=== PATIENT | male | born 1960 | race Caucasian/White ===

== ENCOUNTER 2021-12-29 11:59 | Emergency (ER) | payer OTHER, SELFPAY ==
[2021-12-29 12:01] VITALS: BP 137/85; PULSE 63; RESP 14; TEMP 37.1; O2SAT 98; BMI 25.8
[2021-12-29 12:53] LABS: Ictotest Urine Negative (Negative)
[2021-12-29 12:59] LABS: Bacteria Urine None Seen; Culture Indicated Urine Cult Not Indicated; Mucus Urine 1+ (Negative); RBC Urine 5-10/HPF (0-5/HPF); Squamous Epithelial Cell Urine 1-5 /HPF (0-5/HPF); WBC Urine 1-5/HPF (0-5/HPF)
--- NOTE | 2021-12-29 13:04 | ED_ITS ---
HPI - Male Genitourinary General Chief complaint: Urogenital-Male Stated complaint: KIDNEY STONE Time Seen by Provider: 12/29/21 12:06 Source: patient Mode of arrival: Ambulatory Related Data Allergies Allergy/AdvReac Type Severity Reaction Status Date / Time No Known Drug Allergies Allergy Verified 12/29/21 12:01 Patient History Social History Smoking Status: Unknown if ever smoked Smoking Status: Unknown if ever smoked alcohol intake frequency: holidays/special occasions only Substance Use Type: does not use Exam Initial Vital Signs Initial Vital Signs: Vital Signs Temperature 98.7 F 12/29/21 12:01 Pulse Rate 63 12/29/21 12:01 Respiratory Rate 14 12/29/21 12:01 Blood Pressure 137/85 12/29/21 12:01 Pulse Oximetry 98 12/29/21 12:01 Oxygen Delivery Method 12/29/21 12:01 Course Orders Ordered: ED Orders 12/29/21 12:08 Ictotest Urine Stat Urine Microscopic Stat 12/29/21 12:29 CT kidney ureter bladder (KUB) Stat 12/29/21 13:39 CBC Auto Diff [Complete Blood Count AUTO DIFF] Stat CMP [Comprehensive Metabolic Panel] Stat Vital Signs Vital signs: Vital Signs - 8 hr 12/29/21 12:01 Temperature 98.7 F Pulse Rate 63 Respiratory Rate 14 Blood Pressure 137/85 Pulse Oximetry 98 Oxygen Delivery Method Room Air MDM - Male Genitourinary Lab Data Result diagrams: 12/29/21 13:39 12/29/21 13:39 Labs: Lab Results 12/29/21 12/29/21 Range/Units 12:08 12:08 Ur Bilirubin Confirm Negative (Negative) Urine RBC 5-10/hpf H (0-5/HPF) Urine WBC 1-5/hpf (0-5/HPF) Ur Squamous Epith Cells 1-5 /hpf (0-5/HPF) Urine Bacteria None seen (None) Urine Mucus 1+ H (Negative) Ur Culture Indicated? Cult not indicated Urine Dip Bedside Urine Glucose Negative Bedside Urine Bilirubin ++ 2 Bedside Urine Ketone +/- 5 Urine Specific [place] 1.030 Bedside Urine Occult Blood +/- Bedside Urine pH 6.0 Bedside Urine Protein + 30 Bedside Urine Urobilinogen - Negative Bedside Urine Nitrite - Negative Bedside Urine Leukocytes - Negative Esterase
[2021-12-29 13:52] LABS: Add Manual Diff / Slide Review NO; Basophils Absolute Auto 100 /uL (0-100); Basophils Percent Auto 0.4 % (0-2); Eosinophils Absolute Auto 0 /uL (0-450); Hemoglobin 12.6 g/dL (13.5-17.5); Lymphocytes Absolute Auto 800 /uL (1100-4500); Lymphocytes Percent Auto 6.2 % (25-40); Mean Corpuscular HGB Conc 33.1 % (30-36); Mean Corpuscular Hemoglobin 25.1 PG (26-34); Mean Corpuscular Volume 75.7 fL (80-100); Monocytes Absolute Auto 700 /uL (0-900); Neutrophils Absolute Auto 12000 /uL (1500-7000); Neutrophils Percent Auto 88.4 % (50-75); Platelet Count 251 X10^3/uL (150-400); Red Blood Cell Count 5.02 X10^6/uL (4.5-5.9); Red Cell Distribution Width 18.7 % (11.6-14.8); White Blood Cell Count 13.6 X10^3/uL (4.5-11.0)
--- NOTE | 2021-12-29 14:00 | ED_ITS ---
HPI - General Adult General Chief complaint: Urogenital-Male Stated complaint: KIDNEY STONE Time Seen by Provider: 12/29/21 12:06 Source: patient Mode of arrival: Ambulatory History of Present Illness HPI narrative: 61-year-old gentleman with no current medications or medical issues but reports of kidney stones on the right side 10-12 years ago presents with left-sided flank and lower quadrant pain that he believes is recurrent kidney stone. Initial pain started last night at 10:00 p.m. was significant enough to cause significant nausea but no actual vomiting. He took 400 mg of ibuprofen and actually did well until he was awakened from sleep at 3:00 a.m. again with severe left flank pain. It is continued to progress with colicky bouts of pain throughout the day. He describes no gross hematuria. He did have vomiting today. He had a regular bowel movement last night. He describes no recent fevers, cough, palpitations, chest pain, headaches, lower extremity edema. Related Data Previous Rx's Medication Instructions Recorded amoxicillin-potassium clavulanate 1 tab PO BID #20 tabs 12/29/21 1,000 mg-62.5 mg tablet,ext.rel 12hr oxycodone-acetaminophen 5 mg-325 1 tab PO Q6H PRN pain #10 tabs 12/29/21 mg tablet Allergies Allergy/AdvReac Type Severity Reaction Status Date / Time No Known Drug Allergies Allergy Verified 12/29/21 12:01 Review of Systems Review of Systems Narrative: Remainder of complete review of systems is otherwise unremarkable except for that included in the HPI. Patient History Medical History (Updated 12/29/21 @ 16:42 by Morenita Yates MD) Kidney stones Social History Smoking Status: Unknown if ever smoked Smoking Status: Unknown if ever smoked alcohol intake frequency: holidays/special occasions only Substance Use Type: does not use Exam Initial Vital Signs Initial Vital Signs: Vital Signs Temperature 98.7 F 12/29/21 12:01 Pulse Rate 63 12/29/21 12:01 Respiratory Rate 14 12/29/21 12:01 Blood Pressure 137/85 12/29/21 12:01 Pulse Oximetry 98 12/29/21 12:01 Oxygen Delivery Method 12/29/21 12:01 General: Healthy appearing, in no acute distress. Able to give a complete and coherent history. Well-nourished well-developed HEENT: Moist mucous membranes, normal sclera with reactive pupils, Neck: supple Respiratory: Lungs are clear to auscultation, no wheezing no rales no rhonchi. Full and symmetrical air movement Cardiac: Regular rate and rhythm no murmurs no bruits Abdomen: Soft, nontender, good bowel tones, right flank palpation causes some mild left lower quadrant pain. Mild left flank pain and left lower quadrant pain without rebound or guarding. Skin: Warm and dry, no rashes Neurologic: Grossly neurologically intact with no obvious asymmetries or abnormalities Extremities: No trauma, well perfused Psych: Cooperative, appropriate insight and affect Course Orders Ordered: ED Orders 12/29/21 12:08 Ictotest Urine Stat Urine Microscopic Stat 12/29/21 13:39 CBC Auto Diff [Complete Blood Count AUTO DIFF] Stat CMP [Comprehensive Metabolic Panel] Stat 12/29/21 14:04 US renal complete Stat Amoxicillin/Clavulanate Potassium (Amoxicillin/Clav 875/125 Mg) 1 tab PO NOW ON E Stop: 12/29/21 16:38 Oxycodone/Acetaminophen (Oxycodone/Acetaminophen 5/325 Tablet) 1 tab PO NOW ONE Stop: 12/29/21 16:38 Discontinued Medications Ketorolac Tromethamine (Ketorolac 30 Mg/Ml Vial) 15 mg IV NOW ONE Stop: 12/29/21 14:05 Last Admin: 12/29/21 14:23 Dose: 15 mg Documented By: NR Ondansetron HCl (Ondansetron 4 Mg/2 Ml Inj) 4 mg IV NOW ONE Stop: 12/29/21 14:05 Last Admin: 12/29/21 14:23 Dose: 4 mg Documented By: NR Vital Signs Vital signs: Vital Signs - 8 hr 12/29/21 12:01 Temperature 98.7 F Pulse Rate 63 Respiratory Rate 14 Blood Pressure 137/85 Pulse Oximetry 98 Oxygen Delivery Method Room Air Medical Decision Making Lab Data Result diagrams: 12/29/21 13:39 12/29/21 13:39 Labs: Lab Results 12/29/21 12/29/21 12/29/21 Range/Units 12:08 12:08 13:39 WBC 13.6 H (4.5-11.0) X10^3/uL RBC 5.02 (4.5-5.9) X10^6/uL Hgb 12.6 L (13.5-17.5) g/dL Hct 38.0 L (41-53) % MCV 75.7 L (80-100) fL MCH 25.1 L (26-34) PG MCHC 33.1 (30-36) % RDW 18.7 H (11.6-14.8) % Plt Count 251 (150-400) X10^3/uL Neut % (Auto) 88.4 H (50-75) % Lymph % (Auto) 6.2 L (25-40) % [place] % (Auto) 5.0 (3-14) % Eos % (Auto) 0.0 L (2-4) % Baso % (Auto) 0.4 (0-2) % Neut # (Auto) 99018 H (7571-7610) /uL Lymph # (Auto) 800 L (7065-5053) /uL [place] # (Auto) 700 (0-900) /uL Eos # (Auto) 0 (0-450) /uL Baso # (Auto) 100 (0-100) /uL Sodium (137-145) mmol/L Potassium (3.4-5.1) mmol/L Chloride (98-107) mmol/L Carbon Dioxide (22-32) mmol/L BUN (9-20) mg/dL Creatinine (0.66-1.25) mg/dL Estimated GFR (>60) mL/min BUN/Creatinine Ratio (6-22) Glucose (80-110) mg/dL Calcium (8.4-10.2) mg/dL Total Bilirubin (0.2-1.3) mg/dL AST (17-59) IU/L ALT (<50) IU/L Alkaline Phosphatase (38-126) U/L Total Protein (6.3-8.2) g/dL Albumin (3.5-5.0) g/dL Globulin (1.7-4.1) g/dL Albumin/Globulin Ratio (1.0-2.8) Ur Bilirubin Confirm Negative (Negative) Urine RBC 5-10/hpf H (0-5/HPF) Urine WBC 1-5/hpf (0-5/HPF) Ur Squamous Epith Cells 1-5 /hpf (0-5/HPF) Urine Bacteria None seen (None) Urine Mucus 1+ H (Negative) Ur Culture Indicated? Cult not indicated 12/29/21 Range/Units 13:39 WBC (4.5-11.0) X10^3/uL RBC (4.5-5.9) X10^6/uL Hgb (13.5-17.5) g/dL Hct (41-53) % MCV (80-100) fL MCH (26-34) PG MCHC (30-36) % RDW (11.6-14.8) % Plt Count (150-400) X10^3/uL Neut % (Auto) (50-75) % Lymph % (Auto) (25-40) % [place] % (Auto) (3-14) % Eos % (Auto) (2-4) % Baso % (Auto) (0-2) % Neut # (Auto) (1884-4043) /uL Lymph # (Auto) (6803-8600) /uL [place] # (Auto) (0-900) /uL Eos # (Auto) (0-450) /uL Baso # (Auto) (0-100) /uL Sodium 141 (137-145) mmol/L Potassium 4.5 (3.4-5.1) mmol/L Chloride 108 H (98-107) mmol/L Carbon Dioxide 25 (22-32) mmol/L BUN 19 (9-20) mg/dL Creatinine 1.41 H (0.66-1.25) mg/dL Estimated GFR 57 L (>60) mL/min BUN/Creatinine Ratio 13.5 (6-22) Glucose 109 (80-110) mg/dL Calcium 9.3 (8.4-10.2) mg/dL Total Bilirubin 0.5 (0.2-1.3) mg/dL AST 24 (17-59) IU/L ALT 19 (<50) IU/L Alkaline Phosphatase 86 (38-126) U/L Total Protein 7.8 (6.3-8.2) g/dL Albumin 4.5 (3.5-5.0) g/dL Globulin 3.3 (1.7-4.1) g/dL Albumin/Globulin Ratio 1.4 (1.0-2.8) Ur Bilirubin Confirm (Negative) Urine RBC (0-5/HPF) Urine WBC (0-5/HPF) Ur Squamous Epith Cells (0-5/HPF) Urine Bacteria (None) Urine Mucus (Negative) Ur Culture Indicated? Urine Dip Bedside Urine Glucose Negative Bedside Urine Bilirubin ++ 2 Bedside Urine Ketone +/- 5 Urine Specific [place] 1.030 Bedside Urine Occult Blood +/- Bedside Urine pH 6.0 Bedside Urine Protein + 30 Bedside Urine Urobilinogen - Negative Bedside Urine Nitrite - Negative Bedside Urine Leukocytes - Negative Esterase Point of care testing: Urine Dip Bedside Urine Glucose Negative Bedside Urine Bilirubin ++ 2 Bedside Urine Ketone +/- 5 Urine Specific [place] 1.030 Bedside Urine Occult Blood +/- Bedside Urine pH 6.0 Bedside Urine Protein + 30 Bedside Urine Urobilinogen - Negative Bedside Urine Nitrite - Negative Bedside Urine Leukocytes - Negative Esterase Imaging Data US - abdomen: Radiologist's Impression: FINDINGS:? ? Kidneys:? Kidneys are normal in size.? Right kidney measures quesada cm long; left kidney measures 10.9 cm long.? Right renal cortical thickness is 1.5 cm; left renal cortical thickness is 1.7 cm.? Renal cortical echotexture is normal.? No nephrolithiasis.? No suspicious solid mass lesions.? Mild prominence of the left renal pelvis is seen without calyceal dilation.t ? Bladder:? Bladder was non distended at the time of the exam, which compromises evaluation.? Patient did not attempt to void. ? Miscellaneous:? No free pelvic fluid.? Prostate measures 3.8 x 3.5 x 3.8 cm. ? IMPRESSION:? 1. Mild prominence of the renal pelvis without calyceal dilation may represent very mild or early hydronephrosis versus normal-variant extrarenal pelvis. 2. No nephrolithiasis.? ? ? Dictated by: Faizan Lombardi M.D. on 12/29/2021 at 16:23? ?? [facility] Narrative Medical decision making narrative: 61-year-old gentleman with left flank left lower quadrant tenderness since 10:30 p.m. last night. Leukocytosis with left shift tender on palpation no red blood cells in his urine and I suspect that this is diverticulitis rather than a kidney stone. Patient disagrees and declines CT scan at this time due to radiation exposure, states he would consider MRI.. Will proceed with ultrasound and review all findings after images returned. 430pm patient is re-examined. Some minor left flank tenderness is again increasing, abdomen 1 remains soft with some tenderness in the left lower quadrant. The renal ultrasound does not suggest acute nephrolithiasis on the left side. The lack of blood in the urine and the elevated white blood cell count along with physical exam still suggest developing diverticulitis. All of these findings are reviewed with the patient. At this point we are going to opt to treat with 10 days of Augmentin for diverticulitis along with pain medication to treat the left lower quadrant/left flank pain. If symptoms worsen, change or not improving within the 1st 3 doses of Augmentin then I suggested that he return to the emergency room for further evaluation. He expresses understanding and is comfortable with home discharge Discharge Plan Departure Patient Disposition: Home Clinical Impression: Diverticulitis Instructions: DI for Diverticulitis Activity Restrictions/Additional Instructions: Thank you for coming in today Based on your lab work and her clinical exam I am suspicious that your developing diverticulitis. For this I am going to treat you with 10 days of Augmentin, and antibiotic. The ultrasound does not suggest kidney stones and there is no evidence of urinar y tract or kidney infection. I am going to give you a small prescription for Percocet to use for pain control if needed. This can be helpful if this does turntable engineer to be a kidney stone or that is diverticulitis. Percocet is a narcotic and will cause constipation. Please take a stool softener on each day that you choose to use narcotic medication to avoid constipation. If you find that you are getting worse or develop any new symptoms, please feel free to return to the emergency department for further evaluation. Prescriptions: New amoxicillin-pot clavulanate 1,000-62.5 mg tablet extended release 12 hr 1 tab PO BID Qty: 20 0RF oxycodone-acetaminophen 5-325 mg tablet 1 tab PO Q6H PRN (Reason: pain) Qty: 10 0RF
[2021-12-29 14:03] LABS: Alanine Aminotransferase 19 IU/L (<50); Albumin 4.5 g/dL (3.5-5.0); Albumin Globulin Ratio 1.4 (1.0-2.8); Alkaline Phosphatase 86 U/L (38-126); Aspartate Aminotransferase 24 IU/L (17-59); BUN Creatinine Ratio 13.5 (6-22); Bilirubin Total 0.5 mg/dL (0.2-1.3); Blood Urea Nitrogen 19 mg/dL (9-20); Calcium 9.3 mg/dL (8.4-10.2); Carbon Dioxide 25 mmol/L (22-32); Chloride 108 mmol/L (98-107); Estimated Glomerular Filt Rate 57 mL/min (>60); Globulin 3.3 g/dL (1.7-4.1); Glucose 109 mg/dL (80-110); HEMOLYSIS < 15 (0-50); Potassium 4.5 mmol/L (3.4-5.1); Sodium 141 mmol/L (137-145); Total Protein 7.8 g/dL (6.3-8.2)
--- NOTE | 2021-12-29 14:04 | DI.US.S_ITS ---
PROCEDURE: US RENAL COMPLETE INDICATIONS: L flank, LLQ pain. ?stone vs diverticulitis declines CT scan TECHNIQUE: Real-time scanning was performed of the kidneys and bladder, with image documentation. COMPARISON: None. FINDINGS: Kidneys: Kidneys are normal in size. Right kidney measures quesada cm long; left kidney measures 10.9 cm long. Right renal cortical thickness is 1.5 cm; left renal cortical thickness is 1.7 cm. Renal cortical echotexture is normal. No nephrolithiasis. No suspicious solid mass lesions. Mild prominence of the left renal pelvis is seen without calyceal dilation.t Bladder: Bladder was non distended at the time of the exam, which compromises evaluation. Patient did not attempt to void. Miscellaneous: No free pelvic fluid. Prostate measures 3.8 x 3.5 x 3.8 cm. IMPRESSION: 1. Mild prominence of the renal pelvis without calyceal dilation may represent very mild or early hydronephrosis versus normal-variant extrarenal pelvis. 2. No nephrolithiasis. Dictated by: Faizan Lombardi M.D. on 12/29/2021 at 16:23 Approved by: Faizan Lombardi M.D. on 12/29/2021 at 16:26
[2021-12-29] MEDS: KETOROLAC 30 MG/ML VIAL 15 MG IV (14:23)
[2021-12-29] MEDS: ONDANSETRON 4 MG/2 ML INJ IV (14:23)
[2021-12-29] MEDS: AMOXICILLIN/CLAV 875/125 MG 1 TAB PO (16:51)
[2021-12-29] MEDS: OXYCODONE/ACETAMINOPHEN 5/325 TABLET 1 TAB PO (16:51)
[2021-12-29 16:59] VITALS: PULSE 58; O2SAT 100
[2021-12-29 17:00] VITALS: BP 163/99; PULSE 58; O2SAT 99
== END 2021-12-29 17:05 | disposition home or self-care (01) ==
PROVIDERS: Nurse Practitioner Critical Care Medicine; Emergency Provider Emergency Medicine
DX: K57.92 Diverticulitis of intestine, part unspecified, without perforation or abscess without bleeding (principal); R11.2 Nausea with vomiting, unspecified
CPT/HCPCS: 36415; 76770; 80053; 81003; 81015; 85025; 96374; 96375; 99284; J1885; J2405